=== PATIENT | female | born 1935 | race Caucasian/White ===

== ENCOUNTER 2022-06-27 12:30 | Inpatient (IN) | payer MEDICARE ==
[~2022-06-27] VITALS: Ht 157.5 cm; Wt 54.8 kg
[2022-06-27] VITALS (333 sets, daily range): BP systolic 89–113; BP diastolic 40–51; PULSE 110–111; TEMP 37.1; O2SAT 66–100
[~2022-06-27 12:30] MED LIST: ALEVE 220MG220 MG PO; ASPIRIN E.C. 8181 MG PO; BILBERRY PO; CALCIUM & MAGNE1 CAP PO; MIRAPEX0.25 MG PO; MVI PEDIATRIC1 PDS PO; OMEGA-3 1000 MG1 CAP PO; VITAMIN C BUFF500 MG PO; ZINC50 MG PO; [UNRECOGNIZED DRUG - OTHER] PO
--- NOTE | 2022-06-27 13:06 | NUR ---
ANIYA consulted to speak with the patient's son. Son Leo met in the waiting room and brought back to the family room. He states his sister/ DPOA-HC Jyoti is on her way to the hospital.Leo provided a brief update. Confirmed with Leo that the patient is a DNR/DNI. At this time he would like all aggressive meassures done until his sister gets here. Patient was at [facility]. Previously, she presented to [facility] ER on 06/04 for SOB. Was diagnosed with covid-19 and acute hypoxic repiratory failure. She was flown to [facility] in [place] to their ICU. She arrived at [facility] approx. 1 week ago.
[2022-06-27 13:29] LABS: INR 1.2 (0.8-3.0); PROTHROMBIN TIME 13.3 SECONDS (9.7-12.8)
[2022-06-27 13:30] LABS: MEAN CELL VOLUME 99 fl (80.0-100.0); MEAN CORPUSCULAR HGB CONC 30 g/dl (33.0-37.0); MEAN PLATELET VOLUME 9.7 fl (7.4-10.4); PLATELET COUNT 301 K/mm3 (130-400); REDCELL DISTRIBUTION WIDTH-CV 14.5 % (11.5-14.5)
[2022-06-27 13:33] LABS: HEMATOCRIT 27.6 % (37.0-47.0); HEMOGLOBIN 8.3 g/dl (12.5-16.0); MEAN CORPUSCULAR HEMOGLOBIN 30 pg (27-31)
[2022-06-27 13:37] LABS: ALBUMIN 2.1 gm/dL (3.4-4.8); BILIRUBIN,TOTAL 0.9 mg/dL (0.2-1.2); CALCIUM 10.2 mg/dL (8.4-10.2); CREATININE, serum 1.18 mg/dL (0.57-1.11); POTASSIUM 4.3 mmol/L (3.5-4.5); TOTAL PROTEIN 5.5 gm/dL (6.2-8.1)
[2022-06-27 13:49] LABS: BAND 39 % (0-10); LYMPHOCYTE 3 % (20.0-51.0); NEUTROPHILS 56 % (42.0-75.2)
[2022-06-27 13:53] LABS: HYPOCHROMIA 1+; PLATELET ESTIMATE NORMAL (NORMAL); TOXIC GRANULATION PRESENT
[2022-06-27 17:19] LABS: MAGNESIUM 1.7 mg/dL (1.6-2.6); PHOSPHOROUS 6.3 mg/dL (2.3-4.7)
[2022-06-27 18:40] LABS: MUCOUS Present (NOT PRESENT); PH 6 (5-8); SQUAMOUS EPITHELIAL 0-2 /hpf (0-10); URINE APPEARANCE Hazy (CLEAR/HAZY); URINE BACTERIA None Seen /hpf (NONE SEEN); URINE BLOOD Negative (NEGATIVE); URINE COLOR Yellow (YELLOW); URINE GLUCOSE Negative (NEGATIVE); URINE KETONE Negative (NEGATIVE); URINE NITRATE Negative (NEGATIVE); URINE PROTEIN(semi-quant) 1+ (NEGATIVE); URINE RBC 0-2 /hpf (0-2); URINE UROBILINOGEN Negative (NEGATIVE)
--- NOTE | 2022-06-27 19:29 | NUR ---
PT ADMITED FROM ED AT 1655. UPON ADMISSION PT HAS RIJ IN PLACE W/ LEVOPHED INFUSING AT 0.13MCG/KG/MIN. LEROY CATHETER IN PLACE, URINE SAMPLE COLLECTED AND SENT TO LAB. O2 AT 4L/OXYMASK TO KEEP SATS ABOVE 90%. PT'S DAUGHTER AND SON AT BEDSIDE.
[2022-06-27 19:31] LABS: COLLECTION METHOD CLEAN CATCH
--- NOTE | 2022-06-27 20:00 | NUR ---
AWARE OF PT'S ORDER FOR CT SCAN OF ABD/PELVIS AND CHEST. CALLED TO [facility] OR [facility] AND STATES WILL CALL SOON HE IS AVAILABLE, CURRENTLY SCANNING A BABY AND BUSY IN ER. WILL TAKE PT SOON POSSIBLE.
[2022-06-27] MEDS ORDERED: SINGULAIR 110 MG/TAB (20:15)
[2022-06-27] MEDS ORDERED: COZAAR 50MG50 MG/TAB PO (20:15)
[2022-06-27] MEDS ORDERED: NORVASC 5MG5 MG/TAB PO (20:16)
[2022-06-27] MEDS ORDERED: XALATAN EYE DROPS (20:16)
[2022-06-27] MEDS ORDERED: ALPHAGAN OPHTH D5 ML OP (20:20)
[2022-06-27] MEDS ORDERED: ISTALOL 2.5 ML2.5 ML OP (20:25)
[2022-06-27] MEDS ORDERED: PREDFORTE5ML OP (20:28)
--- NOTE | 2022-06-27 21:15 | NUR ---
PT DOWN TO CT, TOLERATED WELL.
--- NOTE | 2022-06-27 23:00 | NUR ---
DR. SONI AT BEDSIDE DISCUSSING POC AND OPTIONS WITH PT AND DAUGHTER TO TREAT NEW FOUND PERFORATION SEEN IN ABD CT SCAN. BRYAN MORILLO APRN ON FLOOR AT WELL.
[2022-06-28] VITALS (1248 sets, daily range): BP systolic 72–151; BP diastolic 33–86; PULSE 67–113; TEMP 37–37.3; O2SAT 97–100
--- NOTE | 2022-06-28 01:45 | NUR ---
PT JUST RECEIVED FROM OR, ON VENTILATOR. ANESTHESIA MEDS STILL IN EFFECT. PT ON MONITORING, VENT SETTINGS PER RT. ARTERIAL LINE R RADIAL LEVELED AND ZEROED. LEVOPHED INFUSING, RECONNECTED TO LR 75ML/HR. LOYDA DRAIN WITH SEROSANGUINOUS DRAINGAGE, 70ML EMPTIED. G-TUBE PLACED TO LIS. SURGICAL INC TO ABD WITH LENA SANDERSON. FAMILY IN WAITING ROOM, WILL BRING BACK TO SEE PT. WILL CONT TO MONITOR.
[2022-06-28 02:59] LABS: MEAN CELL VOLUME 96 fl (80.0-100.0); MEAN CORPUSCULAR HGB CONC 31 g/dl (33.0-37.0); MEAN PLATELET VOLUME 9.5 fl (7.4-10.4); PLATELET COUNT 252 K/mm3 (130-400); RED BLOOD COUNT 2.42 M/mm3 (4.10-5.30); REDCELL DISTRIBUTION WIDTH-CV 14.7 % (11.5-14.5)
[2022-06-28 03:17] LABS: ALBUMIN 1.8 gm/dL (3.4-4.8); CALCIUM 8.9 mg/dL (8.4-10.2); CREATININE, serum 0.76 mg/dL (0.57-1.11)
[2022-06-28 03:18] LABS: ARTERIAL BLD GAS O2 SATURATION 99.9 % (92-100); ARTERIAL BLD GAS TCO2 CT 22.1; ARTERIAL BLOOD GAS BASE EXCESS -3.4 (-2-2); ARTERIAL BLOOD GAS PCO2 34.6 mmHg (35-45)
[2022-06-28 03:19] LABS: ARTERIAL BLOOD GAS PO2 346.7 mmHg (80-100)
[2022-06-28 03:19] LABS: HEMATOCRIT 23.3 % (37.0-47.0); HEMOGLOBIN 7.2 g/dl (12.5-16.0); MEAN CORPUSCULAR HEMOGLOBIN 30 pg (27-31)
[2022-06-28 03:26] LABS: BAND 21 % (0-10); LYMPHOCYTE 5 % (20.0-51.0); MAGNESIUM 1.5 mg/dL (1.6-2.6); NEUTROPHILS 73 % (42.0-75.2); PHOSPHOROUS 3.4 mg/dL (2.3-4.7)
[2022-06-28 03:27] LABS: ANISOCYTOSIS 1+; HYPOCHROMIA 2+; PLATELET ESTIMATE NORMAL (NORMAL)
--- NOTE | 2022-06-28 07:56 | NUR ---
BEDSIDE REPORT RECEIVED FROM CON ARMANDO. PT ON VENT, FIO2 30%, TV 400, RR 14, PEEP 5, IN AC MODE, TUBE MEASURES 18CM AT GUM. DRESSING TO MIDLINE ABD INCISION IS CDI WITH MINIMAL AMOUNT OF SHADOWING NOTED, WILL CONTINUE TO MONITOR. G TUBE IN PLACE TO LIS. LOYDA DRAIN TO ABD W/ SCANT AMOUNT OF DRAINAGE IN BULB. LEROY IN PLACE TO DEPENDENT DRAIN BAG, GOOD OUTPUT NOTED. RIJ DRESSING CDI, MEDICATIONS INFUSING ORDERED, SEE IV FLOWSHEET. ART LINE IN PLACE, LINE LEVELED AND ZEROED. PT DOES OPEN EYES AND RESPOND TO QUESTIONS BY NODDING HEAD. PT DENIES PAIN AT THIS TIME.
[2022-06-28 12:16] LABS: HEMATOCRIT 20.7 % (37.0-47.0); HEMOGLOBIN 6.5 g/dl (12.5-16.0)
[2022-06-28 18:12] LABS: CREATININE, serum 0.71 mg/dL (0.57-1.11); SODIUM 136 mmol/L (136-145)
--- NOTE | 2022-06-28 18:12 | NUR ---
SEDATION VACATION NOT PERFORMED AT THIS TIME PT AROUSES EASILY AND FOLLOWS BASIC COMMANDS ON CURRENT SEDATION SETTINGS. PT SHOOK HEAD YES WHEN ASKED IF SHE WAS COMFORTABLE ON CURRENT PAIN AND SEDATION MEDICATION SETTINGS.
[2022-06-28 20:14] LABS: HEMATOCRIT 24.5 % (37.0-47.0); HEMOGLOBIN 8.2 g/dl (12.5-16.0)
[2022-06-29] VITALS (1204 sets, daily range): BP systolic 115–165; BP diastolic 35–79; PULSE 59–74; TEMP 37.2–37.3; O2SAT 100
[2022-06-29 04:43] LABS: BASO % 0.1 % (0.0-2.0); EOS % 0.2 % (0.0-4.0); GRAN # 12.7 K/mm3 (1.4-6.5); GRAN % 83.5 % (42.2-75.2); LYMPH # 2.1 K/mm3 (1.2-3.4); LYMPH % 13.5 % (20.0-51.0); MEAN CORPUSCULAR HGB CONC 33 g/dl (33.0-37.0); MEAN PLATELET VOLUME 9.6 fl (7.4-10.4); MONO # 0.3 K/mm3 (0.1-0.6); PLATELET COUNT 178 K/mm3 (130-400); RED BLOOD COUNT 2.38 M/mm3 (4.10-5.30); REDCELL DISTRIBUTION WIDTH-CV 15.7 % (11.5-14.5)
[2022-06-29 04:44] LABS: MEAN CELL VOLUME 88 fl (80.0-100.0); MEAN CORPUSCULAR HEMOGLOBIN 29 pg (27-31)
[2022-06-29 04:51] LABS: ALBUMIN 1.4 gm/dL (3.4-4.8); CALCIUM 7.8 mg/dL (8.4-10.2); CREATININE, serum 0.64 mg/dL (0.57-1.11); PHOSPHOROUS 1.5 mg/dL (2.3-4.7); POTASSIUM 3.3 mmol/L (3.5-4.5)
--- NOTE | 2022-06-29 05:05 | NUR ---
PATIENT RESPOND IMMEDIATELY TO VERBAL STIMULI. LOOKS AROUND ROOM SEDATION IN LOW DRIP RATE NO CHANGE
[2022-06-29 07:57] LABS: INR 1.4 (0.8-3.0); PROTHROMBIN TIME 15.6 SECONDS (9.7-12.8)
--- NOTE | 2022-06-29 08:48 | NUR ---
BEDSIDE REPORT RECEIVED FROM CON AYALA. PT ON VENT AT 30% FIO2, 400 TV, 5 PEEP, MEASURES 21CM AT GUM. DRESSING TO MIDLINE INCISION AND LOYDA DRAIN CDI. 65ML OF SEROSANGUINEOUS DRAINAGE EMPTIED FROM LOYDA DRAIN. SCANT AMOUNT OF GREEN DRAINAGE NOTED TO G TUBE SUCTION TUBING. LEROY CATHETER IN PLACE W/ DEPENDENT DRAINAGE BAG. MEDICATIONS INFUSING TO RIJ, SEE FLOWSHEET. DRESSING TO RIJ IS CDI. PT IS DROWSY BUT RESPONDS TO VOICE AND IS ABLE TO ANSWER QUESTIONS BY NODDING HEAD. PT DENIES PAIN AT THIS TIME.
[2022-06-29 13:44] LABS: ARTERIAL BLD GAS O2 SATURATION 97.9 % (92-100); ARTERIAL BLD GAS TCO2 CT 24.2; ARTERIAL BLOOD GAS BASE EXCESS 0.1 (-2-2); ARTERIAL BLOOD GAS HCO3 23.3 meq/L (22-26); ARTERIAL BLOOD GAS PCO2 31.4 mmHg (35-45); ARTERIAL BLOOD GAS PO2 96.3 mmHg (80-100); ARTERIAL BLOOD GAS pH 7.49 (7.35-7.45)
[2022-06-29 14:06] LABS: HEMOGLOBIN 6.7 g/dl (12.5-16.0)
--- NOTE | 2022-06-29 15:17 | NUR ---
FENTANYL DRIP INCREASED AT 1241. AFTER REPOSITIONING PT IN BED SHE MADE FACIAL GRIMACES, WHEN ASKED IF SHE WAS IN PAIN SHE SHOOK HEAD YES. PT STILL WAKES TO VOICE AND IS ABLE TO NOD HEAD TO COMMUNICATE AFTER INCREASE.
--- NOTE | 2022-06-29 17:28 | NUR ---
PT HAS BEEN ON MINIMAL SEDATION ALL SHIFT. SEDATION VACATION NOT APPROPRIATE AT THIS TIME.
[2022-06-30] VITALS (996 sets, daily range): BP systolic 127–142; BP diastolic 32–73; PULSE 58–96; TEMP 99.3–99.7; O2SAT 95–100
[2022-06-30 05:12] LABS: ARTERIAL BLD GAS O2 SATURATION 96.7 % (92-100); ARTERIAL BLD GAS TCO2 CT 27.2; ARTERIAL BLOOD GAS BASE EXCESS 1.6 (-2-2); ARTERIAL BLOOD GAS HCO3 25.9 meq/L (22-26); ARTERIAL BLOOD GAS PCO2 39.7 mmHg (35-45); ARTERIAL BLOOD GAS PO2 91.1 mmHg (80-100); ARTERIAL BLOOD GAS pH 7.43 (7.35-7.45)
[2022-06-30 05:19] LABS: BASO % 0.2 % (0.0-2.0); EOS # 0.1 K/mm3 (0.0-0.7); EOS % 0.5 % (0.0-4.0); GRAN % 79.5 % (42.2-75.2); LYMPH # 1.7 K/mm3 (1.2-3.4); LYMPH % 15.2 % (20.0-51.0); MEAN CELL VOLUME 89 fl (80.0-100.0); MEAN CORPUSCULAR HGB CONC 32 g/dl (33.0-37.0); MEAN PLATELET VOLUME 9.5 fl (7.4-10.4); MONO # 0.4 K/mm3 (0.1-0.6); MONO % 3.3 % (1.7-9.3); PLATELET COUNT 154 K/mm3 (130-400); RED BLOOD COUNT 2.62 M/mm3 (4.10-5.30)
[2022-06-30 05:20] LABS: HEMATOCRIT 23.4 % (37.0-47.0); HEMOGLOBIN 7.5 g/dl (12.5-16.0); MEAN CORPUSCULAR HEMOGLOBIN 29 pg (27-31)
--- NOTE | 2022-06-30 05:34 | NUR ---
PATIENT IS EASILY AWAKENS FOLLOW SOME COMMANDS LIKE SQUESE HANDS BLINK. REMAINS AWKE AFTER CONVERSATIONS HAV COMPLETED BREATHING EASY
[2022-06-30 05:38] LABS: CALCIUM 7.8 mg/dL (8.4-10.2); CREATININE, serum 0.59 mg/dL (0.57-1.11); MAGNESIUM 1.5 mg/dL (1.6-2.6); PHOSPHOROUS 2.7 mg/dL (2.3-4.7); POTASSIUM 3.6 mmol/L (3.5-4.5)
[2022-06-30 06:05] LABS: ALBUMIN 1.3 gm/dL (3.4-4.8)
--- NOTE | 2022-06-30 07:00 | NUR ---
BEDSIDE REPORT RECEIVED FROM CON AYALA. PT INTUBATED AND SEDATED AT THIS TIME. NO S/S DISCOMFORT. BILATERAL SOFT WRIST RESTRAINTS IN PLACE. SEE GTT FLOW SHEETS FOR RATES AND INFUSIONS OF MEDICATIONS.
[2022-06-30 11:39] LABS: HEMATOCRIT 23.3 % (37.0-47.0); HEMOGLOBIN 7.8 g/dl (12.5-16.0)
--- NOTE | 2022-06-30 13:39 | NUR ---
[employer] contacted Adis at [facility] and requested DPOA-HC. Adis faxed in a copy, which ANIYA placed on patient's chart. DPOA-HC designates patient's daughter, Jyoti. ANIYA faxed clinical updates to [facility]. Discharge Plan: [facility]
--- NOTE | 2022-06-30 16:15 | NUR ---
300ML OF BLUE GATORATE INSTILLED INTO G-TUBE AND G-TUBE CLAMPED PER DR. SONI'S ORDER. CONTINUE TO MONITOR LOYDA DRAIN FOR BLUE OUTPUT. IF LOYDA DRAIN SHOWS NO SIGNS OF BLUE THEN INSTILL REST OF BOTTLE OF BLUE GATORATE INTO G-TUBE AT APPROX. 2215.
--- NOTE | 2022-06-30 16:15 | NUR ---
SEDATION DECREASED FOR SEDATION VACATION AND CPAP TRIAL.
[2022-07-01] VITALS (1309 sets, daily range): BP systolic 97–150; BP diastolic 27–68; PULSE 81–98; TEMP 98–99.3; O2SAT 85–100
--- NOTE | 2022-07-01 02:00 | NUR ---
VENT TRIAL PATIENT ON CPAP. MAINTAINED ADEQUATE TIDAL VOLUMES OF 385 TO 420, 12 RESPIRATIONS PER MINUTE,O2 SATS 100%. ALSO ASLEEP BY THE END OF TRIAL AND STILL MAINTAINIG TIDAL VO;UMES
[2022-07-01 05:04] LABS: ARTERIAL BLD GAS O2 SATURATION 96.1 % (92-100); ARTERIAL BLD GAS TCO2 CT 25.5; ARTERIAL BLOOD GAS BASE EXCESS 0.5 (-2-2); ARTERIAL BLOOD GAS HCO3 24.4 meq/L (22-26); ARTERIAL BLOOD GAS PCO2 36.5 mmHg (35-45); ARTERIAL BLOOD GAS PO2 79.9 mmHg (80-100); ARTERIAL BLOOD GAS pH 7.44 (7.35-7.45)
[2022-07-01 05:39] LABS: MEAN CORPUSCULAR HGB CONC 31 g/dl (33.0-37.0); MEAN PLATELET VOLUME 9.6 fl (7.4-10.4); PLATELET COUNT 182 K/mm3 (130-400); RED BLOOD COUNT 2.77 M/mm3 (4.10-5.30)
[2022-07-01 05:46] LABS: HEMATOCRIT 26.2 % (37.0-47.0); HEMOGLOBIN 8.2 g/dl (12.5-16.0); MEAN CELL VOLUME 95 fl (80.0-100.0); MEAN CORPUSCULAR HEMOGLOBIN 30 pg (27-31)
[2022-07-01 05:57] LABS: ALBUMIN 1.4 gm/dL (3.4-4.8); CALCIUM 8.4 mg/dL (8.4-10.2); CREATININE, serum 0.57 mg/dL (0.57-1.11); MAGNESIUM 1.4 mg/dL (1.6-2.6); PHOSPHOROUS 2.2 mg/dL (2.3-4.7); POTASSIUM 3.9 mmol/L (3.5-4.5)
[2022-07-01 06:17] LABS: ANISOCYTOSIS 1+; BAND 11 % (0-10); EOSINOPHIL 1 % (0-4); HYPOCHROMIA 1+; LYMPHOCYTE 11 % (20.0-51.0); NEUTROPHILS 76 % (42.0-75.2); PLATELET ESTIMATE NORMAL (NORMAL)
--- NOTE | 2022-07-01 06:24 | NUR ---
WEANING TRIAL AGAIN TODAY ALL PAIN AND SEDATIVE MEDICATION ON STANDBY AT THIS TIME PATIENT IS COMFORTABLE
--- NOTE | 2022-07-01 07:00 | NUR ---
PT IS INTUBATED BUT SEDATION IS OFF FOR ATTEMPTED VENT WEANING TRIAL. PT WAKES TO VOICE AND IS EASILY CALMED. PT ON LEVOPHED AND TPN. VSS.
[2022-07-01 10:13] LABS: ARTERIAL BLD GAS O2 SATURATION 91.2 % (92-100); ARTERIAL BLD GAS TCO2 CT 27.5; ARTERIAL BLOOD GAS BASE EXCESS 0.7 (-2-2); ARTERIAL BLOOD GAS HCO3 26.1 meq/L (22-26); ARTERIAL BLOOD GAS PCO2 45.7 mmHg (35-45); ARTERIAL BLOOD GAS pH 7.37 (7.35-7.45)
--- NOTE | 2022-07-01 10:55 | NUR ---
Trimmer Operator met with patient, Leo at bedside to introduce self and explain role. Leo had no questions or concerns for ANIYA at this time. ANIYA faxed clinical updates to Adis at [facility].
--- NOTE | 2022-07-01 15:10 | NUR ---
DR. Guillaume here to see pt. Looked at abdominal ins. update given to nurse - keep insicion open to air. may remove LOYDA drain tomorrow depending on drainage.
--- NOTE | 2022-07-01 17:21 | NUR ---
PT ABLE TO FOLLOW SIMPLE COMMANDS AND MOVES ALL EXTREMETIES. NO SEDATION VACATION AT THIS TIME. PT WAS OFF ALL SEDATION FROM 7716-9070 THIS AM.
--- NOTE | 2022-07-01 19:30 | NUR ---
Received report from CON Campuzano. Patient resting quietly in bed. Patient's daughter at bedside. Patient is alert and opening eyes spontaneously; she is following verbal commands. Vitals within normal limits. She continues to receive levophed, propofol, and fentanyl drips, see IV drip titrations.
[2022-07-02] VITALS (1323 sets, daily range): BP systolic 98–175; BP diastolic 36–94; PULSE 60–101; TEMP 97.6–99.1; O2SAT 89–100
[2022-07-02 05:17] LABS: MEAN CELL VOLUME 92 fl (80.0-100.0); MEAN CORPUSCULAR HGB CONC 32 g/dl (33.0-37.0); MEAN PLATELET VOLUME 9.6 fl (7.4-10.4); PLATELET COUNT 180 K/mm3 (130-400); RED BLOOD COUNT 2.35 M/mm3 (4.10-5.30); REDCELL DISTRIBUTION WIDTH-CV 15.9 % (11.5-14.5)
[2022-07-02 05:25] LABS: HEMATOCRIT 21.7 % (37.0-47.0); MEAN CORPUSCULAR HEMOGLOBIN 29 pg (27-31)
[2022-07-02 05:29] LABS: HEMOGLOBIN 6.9 g/dl (12.5-16.0)
[2022-07-02 05:43] LABS: CALCIUM 8.1 mg/dL (8.4-10.2); CREATININE, serum 0.53 mg/dL (0.57-1.11); MAGNESIUM 1.5 mg/dL (1.6-2.6); PHOSPHOROUS 2.1 mg/dL (2.3-4.7)
[2022-07-02 06:16] LABS: ALBUMIN 1.2 gm/dL (3.4-4.8)
[2022-07-02 06:28] LABS: BAND 4 % (0-10); EOSINOPHIL 1 % (0-4); LYMPHOCYTE 15 % (20.0-51.0); NEUTROPHILS 73 % (42.0-75.2)
[2022-07-02 06:31] LABS: ANISOCYTOSIS 1+; HYPOCHROMIA 1+; PLATELET ESTIMATE NORMAL (NORMAL)
--- NOTE | 2022-07-02 07:00 | NUR ---
BEDSIDE REPORT RECEIVED FROM NAN RN. PT INTUBATED AND SEDATED AT THIS TIME. ACCEPTING MECHANINCAL VENTILATION. SEDATION ON STANDBY FOR CPAP TRIAL. BILATERAL SOFT WRIST RESTRAINTS IN PLACE. NO S/S DISCOMFORT.
--- NOTE | 2022-07-02 07:37 | NUR ---
Report given to CON Banegas, and CON Andre.
[2022-07-02 09:36] LABS: ARTERIAL BLD GAS O2 SATURATION 95.9 % (92-100); ARTERIAL BLD GAS TCO2 CT 26.1; ARTERIAL BLOOD GAS BASE EXCESS -0.1 (-2-2); ARTERIAL BLOOD GAS HCO3 24.8 meq/L (22-26); ARTERIAL BLOOD GAS PCO2 41.7 mmHg (35-45); ARTERIAL BLOOD GAS PO2 82.6 mmHg (80-100); ARTERIAL BLOOD GAS pH 7.39 (7.35-7.45)
--- NOTE | 2022-07-02 09:40 | NUR ---
LOYDA DRAIN REMOVED FROM ABDOMEN BY DR. SONI. STERILE 4X4 GAUZE PLACED OVER SITE WITH MEDIPORE TAPE SECURING. DR. SONI STATES SITE WILL DRAIN SEROUS FLUID FOR APPROX. 24 HOURS. PT TOLERATED WELL AND SHOWS NO S/S DISCOMFORT.
--- NOTE | 2022-07-02 09:50 | NUR ---
PT EXTUBATED BY RT AT THIS TIME AND PLACED ON 4L OXY MASK. PT TOLERATED WELL AND WAS ABLE TO CLEAR SECREATIONS FROM AIRWAY. SPO2 APPROX 98%.
[2022-07-02 11:58] LABS: ARTERIAL BLD GAS O2 SATURATION 97.5 % (92-100); ARTERIAL BLD GAS TCO2 CT 29.7; ARTERIAL BLOOD GAS BASE EXCESS 2.6 (-2-2); ARTERIAL BLOOD GAS HCO3 28.2 meq/L (22-26); ARTERIAL BLOOD GAS PCO2 49.8 mmHg (35-45); ARTERIAL BLOOD GAS PO2 100.4 mmHg (80-100); ARTERIAL BLOOD GAS pH 7.37 (7.35-7.45)
--- NOTE | 2022-07-02 15:03 | NUR ---
Pitch Worker attended clinical rounds with the team and Hospitalist and Computer Software Engineer recommended a referral to [facility]. SW contacted Ravi at [facility] and faxed referral.
--- NOTE | 2022-07-02 22:10 | NUR ---
NOVED PATIENT TO SURGICAL FLOOR RM 345 GAVE REPORT TO BRENDAN ANDUJAR
--- NOTE | 2022-07-02 23:00 | NUR ---
Pt. arrived to the floor from ICU. Pt. is alert and confused. Assessment complete. TLC to rt. IJ patent, IV fluids infusing per orders. G-tube noted with tube feeding running per orders at this time. Pt. denies pain or other needs. Call light within reach. \
[2022-07-03 03:59] VITALS: BP 150/67; PULSE 98; TEMP 98.3
--- NOTE | 2022-07-03 06:50 | NUR ---
resting in bed, bedside shift report received from CON Haines,
[2022-07-03 07:00] LABS: CREATININE, serum 0.56 mg/dL (0.57-1.11); PHOSPHOROUS 2.6 mg/dL (2.3-4.7)
[2022-07-03 08:00] VITALS: BP 132/50; PULSE 109; TEMP 98.2
--- NOTE | 2022-07-03 08:20 | NUR ---
awake resting in bed, O2 on per oxymask
--- NOTE | 2022-07-03 09:36 | NUR ---
tent worker contacted the patient's daughter Jyoti to make sure she was aware that the patient was moved up from the ICU unit and to inform her of the recommendation for a [facility] eval. Informed her that Ravi with [facility] is in house today and will be available to answer any questions for her. Jyoti states that she will be here around 1000. Informed Ravi that the patient's daughter would like to speak with her.
--- NOTE | 2022-07-03 10:00 | NUR ---
continues resting in bed, awake and alert, full assessment completed, see interventins for further info, abdominal incision is open to air, has dressing to right of incision that has serosanguinous drainage, removed and only have small incision that appears to have been a drain site, covered with clean 4x4 gauze, Gtube dressing in place and CD&I, tube feeding infusing at 35m/hr, son in to visit, Dr Guido and Dr Forrester were in to see patient,
--- NOTE | 2022-07-03 10:21 | NUR ---
physical therapy in to work with patient
[2022-07-03 11:06] VITALS: BP 132/50; PULSE 109; TEMP 98.2
--- NOTE | 2022-07-03 12:15 | NUR ---
EMS here, transferred to their cot and discharged to [facility] in [place]
--- NOTE | 2022-07-03 12:30 | NUR ---
report called to Albert at [facility]
== END 2022-07-03 12:15 | DRG 853 ==
LOC: COL.ER 12:30 → ICU 14:51 → SURG 07-02 23:00
PROVIDERS: Internal Medicine Pulmonary Disease; Nurse Practitioner Family; Personal Emergency Response Attendant; Physician Assistant; Registered Nurse; Student in an Organized Health Care Education/Training Program; Surgery; ADMIT Internal Medicine
PROC: 02HV33Z Insertion of Infusion Device into Superior Vena Cava, Percutaneous Approach (ICD-10-PCS; 2022-06-27)
PROC: 3E043XZ Introduction of Vasopressor into Central Vein, Percutaneous Approach (ICD-10-PCS; 2022-06-27)
PROC: 3E0G76Z Introduction of Nutritional Substance into Upper GI, Via Natural or Artificial Opening (ICD-10-PCS; 2022-06-28)
PROC: 0BH17EZ Insertion of Endotracheal Airway into Trachea, Via Natural or Artificial Opening (ICD-10-PCS; 2022-06-28)
PROC: 5A1955Z Respiratory Ventilation, Greater than 96 Consecutive Hours (ICD-10-PCS; 2022-06-28)
PROC: 0DU907Z Supplement Duodenum with Autologous Tissue Substitute, Open Approach (ICD-10-PCS; principal; 2022-06-28 00:45)
PROC: 0DH60UZ Insertion of Feeding Device into Stomach, Open Approach (ICD-10-PCS; 2022-06-28 00:45)
DX: A41.9 Sepsis, unspecified organism (principal); K26.5 Chronic or unspecified duodenal ulcer with perforation; J96.01 Acute respiratory failure with hypoxia; R65.21 Severe sepsis with septic shock; G93.41 Metabolic encephalopathy; E43 Unspecified severe protein-calorie malnutrition; Z66 Do not resuscitate; K72.00 Acute and subacute hepatic failure without coma; E87.2 Acidosis; B02.30 Zoster ocular disease, unspecified; D62 Acute posthemorrhagic anemia; E22.2 Syndrome of inappropriate secretion of antidiuretic hormone; Z68.1 Body mass index [BMI] 19.9 or less, adult; D72.829 Elevated white blood cell count, unspecified; H40.9 Unspecified glaucoma; I10 Essential (primary) hypertension; J47.9 Bronchiectasis, uncomplicated; I95.9 Hypotension, unspecified; E83.52 Hypercalcemia; E86.0 Dehydration; R13.10 Dysphagia, unspecified; M19.90 Unspecified osteoarthritis, unspecified site; J98.4 Other disorders of lung; E83.42 Hypomagnesemia; E88.09 Other disorders of plasma-protein metabolism, not elsewhere classified; R34 Anuria and oliguria; J84.10 Pulmonary fibrosis, unspecified; E87.6 Hypokalemia; E83.39 Other disorders of phosphorus metabolism; L89.152 Pressure ulcer of sacral region, stage 2; Z87.19 Personal history of other diseases of the digestive system; Z86.16 Personal history of COVID-19; Z90.49 Acquired absence of other specified parts of digestive tract; Z87.01 Personal history of pneumonia (recurrent); Z79.82 Long term (current) use of aspirin; Z23 Encounter for immunization
CPT/HCPCS: C9113; J0456; J0692; J0696; J1450; J1720; J1815; J2370; J2704; J3010; J3370; J3411; J3475; J3480; J7030; J7040; J7050; J7060; J7120; P9016; Q9967